=== PATIENT | female | born 1965 | race Caucasian/White ===

== ENCOUNTER 2017-02-17 17:31 | Emergency (ER) | payer OTHER ==
[2017-02-17] MEDS ORDERED: PREDNISONE 20 MG TABLET PO ONE (18:33)
--- NOTE | 2017-02-17 18:36 | ER Document Report ---
HPI - HPI Patient complains to provider of: Skin rash Onset: Other - 4 days Onset/Duration: Persistent Pain Level: 2 Context: Patient complains of pruritic skin rash for the past 4 days. Patient was working outside and is concerned about exposure to poison oak or poison sumac. Associated Symptoms: Other - Skin rash Exacerbated by: Denies Relieved by: Denies Similar symptoms previously: Yes Recently seen / treated by doctor: No - ROS ROS below otherwise negative: Yes Systems Reviewed and Negative: Yes All other systems reviewed and negative - CONSTITUTIONAL Constitutional: DENIES: Fever - RESPIRATORY Respiratory: DENIES: Trouble Breathing, Coughing - GASTROINTESTINAL Gastrointestinal: DENIES: Nausea - DERM Skin Color: Normal Skin Problems: Rash, Blister Past Medical History - General Information source: Patient - Social History Smoking Status: Current Every Day Smoker Frequency of alcohol use: Occasional Drug Abuse: None Occupation: Maintenance Family History: Reviewed & Not Pertinent - Medical History Medical History: Negative Renal/ Medical History: Denies: Hx Peritoneal Dialysis Surgical Hx: Negative Vertical Provider Document - CONSTITUTIONAL Agree With Documented VS: Yes Exam Limitations: No Limitations General Appearance: WD/WN, No Apparent Distress - INFECTION CONTROL TRAVEL OUTSIDE OF THE [place] IN LAST 30 DAYS: No - HEENT HEENT: Atraumatic, Normal ENT Exam, Normocephalic - NECK Neck: Normal Inspection, Supple. negative: Lymphadenopathy-Left, Lymphadenopathy-Right - RESPIRATORY Respiratory: Breath Sounds Normal, No Respiratory Distress O2 Sat by Pulse Oximetry: 97 - CARDIOVASCULAR Cardiovascular: Regular Rate, Regular Rhythm, No Murmur - BACK Back: Normal Inspection - MUSCULOSKELETAL/EXTREMETIES Musculoskeletal/Extremeties: MAEW - NEURO Level of Consciousness: Awake, Alert, Appropriate Motor/Sensory: No Motor Deficit - DERM Integumentary: Warm, Dry, Rash - Erythematous vesicular rash scattered to trunk extremities and forehead area. Patient with concentrated area of lesions to the volar aspect of right forearm, no concern for cellulitis Course - Re-evaluation Re-evalutation: 02/17/17 18:34 The patient has been informed that they may have pre-hypertension or hypertension based on a blood pressure reading in the emergency department. I recommend that patient call the primary care provider listed on their discharge instructions or a physician of their choice by this week to arrange follow-up for further evaluation of possible pre-hypertension or hypertension. - Vital Signs Vital signs: Temp Pulse Resp BP Pulse Ox 98.2 F 102 H 24 H 179/86 H 97 02/17/17 17:35 02/17/17 17:35 02/17/17 17:35 02/17/17 17:35 02/17/17 17:35 Discharge - Discharge Clinical Impression: Elevated blood pressure reading Contact dermatitis Qualifiers: Contact dermatitis type: irritant Contact dermatitis trigger: non-food plants Qualified Code(s): L24.7 - Irritant contact dermatitis due to plants, except food Condition: Stable Disposition: HOME, SELF-CARE Instructions: Poison Carla ([facility]), Steroid Medication Additional Instructions: Return immediately for any new or worsening symptoms Followup with your primary care provider, call tomorrow to make a followup appointment Prescriptions: Prednisone [Deltasone 5 mg Tablet] 5 mg PO ASDIR PRN #100 tablet PRN Reason: Forms: Elevated Blood Pressure Referrals: [facility] [Provider Group] - Follow up as needed
[2017-02-17 18:58] VITALS: BP 152/94
== END 2017-02-17 18:58 | disposition home or self-care (01) ==
LOC: ER 17:31
DX: L24.7 Irritant contact dermatitis due to plants, except food (principal); R03.0 Elevated blood-pressure reading, without diagnosis of hypertension; F17.200 Nicotine dependence, unspecified, uncomplicated
CPT/HCPCS: 99282; J7512

== ENCOUNTER 2018-08-01 13:46 | Emergency (ER) | payer SELFPAY ==
[2018-08-01 13:54] VITALS: BP 146/80
[2018-08-01] MEDS ORDERED: LIDOCAINE 2% VISCOUS SOLN 20 ML UDCUP PO ONE (14:13)
[2018-08-01] MEDS ORDERED: CLINDAMYCIN 600 MG/D5W RTU 600 MG/50 ML RTUPB IV ONE (14:13)
--- NOTE | 2018-08-01 14:17 | ER Document Report ---
HPI - HPI Patient complains to provider of: dental infection Time Seen by Provider: 08/01/18 14:03 Onset: Yesterday Onset/Duration: Worse Quality of pain: Achy Pain Level: 5 Context: Patient complains of multiple dental caries. Patient states she had dental pain that started to increase yesterday and today she had swelling to the right lower jaw area. Patient denies any fever. Associated Symptoms: Other - Dental infection. denies: Fever Exacerbated by: Denies Relieved by: Denies Similar symptoms previously: Yes Recently seen / treated by doctor: No - ROS ROS below otherwise negative: Yes Systems Reviewed and Negative: Yes All other systems reviewed and negative - CONSTITUTIONAL Constitutional: DENIES: Fever - EENT EENT: DENIES: Sore Throat Notes: Dental infection - GASTROINTESTINAL Gastrointestinal: DENIES: Patient vomiting - REPRODUCTIVE Reproductive: DENIES: : - MUSCULOSKELETAL Musculoskeletal: DENIES: Back Pain - DERM Skin Color: Normal Skin Problems: None Past Medical History - General Information source: Patient - Social History Smoking Status: Current Every Day Smoker Smoking Education Provided: Yes Frequency of alcohol use: Occasional Drug Abuse: None Occupation: plumbing Lives with: Friend Family History: Reviewed & Not Pertinent - Medical History Medical History: Negative Renal/ Medical History: Denies: Hx Peritoneal Dialysis Surgical Hx: Negative Vertical Provider Document - CONSTITUTIONAL Agree With Documented VS: Yes Exam Limitations: No Limitations General Appearance: WD/WN, No Apparent Distress - INFECTION CONTROL TRAVEL OUTSIDE OF THE [place] IN LAST 30 DAYS: No - HEENT HEENT: Atraumatic, Normocephalic Mouth Diagram: 1 - Tender, indurated gingiva concerning for developing abscess Notes: Patient with widespread dental decay with numerous broken teeth upper and lower jaw areas, no trismus - NECK Neck: Normal Inspection, Supple. negative: Lymphadenopathy-Left, Lymphadenopathy-Right - RESPIRATORY Respiratory: Breath Sounds Normal, No Respiratory Distress - CARDIOVASCULAR Cardiovascular: Regular Rate, Regular Rhythm - MUSCULOSKELETAL/EXTREMETIES Musculoskeletal/Extremeties: MAEW - NEURO Level of Consciousness: Awake, Alert, Appropriate Motor/Sensory: No Motor Deficit - DERM Integumentary: Warm, Dry Course - Re-evaluation Re-evalutation: 08/01/18 14:15 Offered patient pain medication, patient declines preferring only the oral lidocaine at this time. - Vital Signs Vital signs: Temp Pulse Resp BP Pulse Ox 98.5 F 100 16 146/80 H 97 08/01/18 13:53 08/01/18 13:53 08/01/18 13:53 08/01/18 13:53 08/01/18 13:53 Procedures - Incision and Drainage Right Type: Simple Incision Method: Incision made with needle Mouth/Teeth picture: 1 - incision made with needle, only bloody drainage Discharge - Discharge Clinical Impression: Infected dental caries Condition: Stable Disposition: HOME, SELF-CARE Instructions: Clindamycin ([facility]), Dentist, Dental Infection or Abscess ([facility]) Additional Instructions: Return immediately for any new or worsening symptoms Follow-up with a dental care provider, call Friday for an appointment Return in 2 days if you are not having any improvement of your symptoms Prescriptions: Clindamycin HCl [Cleocin Hcl] 300 mg PO QID #28 capsule Naproxen [Naprosyn 250 Nmg Tablet] 1 tab PO BID #14 tablet Forms: Smoking Cessation Education, Return to Work Referrals: [facility] [Provider Group] - Follow up as needed
== END 2018-08-01 17:40 | disposition home or self-care (01) ==
LOC: ER 13:46
DX: K04.7 Periapical abscess without sinus (principal); K02.9 Dental caries, unspecified
CPT/HCPCS: 41800; 99283; 96365; J3490